=== PATIENT | female | born 2000 | race Caucasian/White ===

== ENCOUNTER 2019-12-31 12:56 | Emergency (ER) | payer OTHER ==
[2019-12-31 13:03] VITALS: BP 121/85; PULSE 98; RESP 18; TEMP 97.8
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
== END 2019-12-31 13:50 | disposition home or self-care (01) ==
LOC: EC 12:56
DX: S00.81XA Abrasion of other part of head, initial encounter (principal); V47.5XXA Car driver injured in collision with fixed or stationary object in traffic accident, initial encounter; Y92.89 Other specified places as the place of occurrence of the external cause
CPT/HCPCS: 99283